=== PATIENT | male | born 1960 | race Hispanic/Latino ===

== ENCOUNTER 2018-12-29 17:54 | Emergency (ER) | payer OTHER ==
[2018-12-29] MEDS ORDERED: CYCLOBENZAPRINE HCL 10 MG TABLET ONE (18:42)
== END 2018-12-29 19:12 | disposition home or self-care (01) ==
LOC: EDH 17:54
DX: M62.830 Muscle spasm of back (principal); M54.5 Low back pain
CPT/HCPCS: 72100